=== PATIENT | male | born 1950 | race Caucasian/White ===

== ENCOUNTER 2021-01-30 00:14 | Emergency (ER) | payer OTHER ==
[~2021-01-30] VITALS: Ht 172.7 cm; Wt 81.7 kg
[~2021-01-30 00:14] MED LIST: ALPR.5 PO; ASPI325 PO; ATOR40TA PO; CENTRUM SILVER1 EAC4 PO; CHOL10002 PO; CLOP75 PO; GLUC500 PO; HEARTBURN TREAT15 MG PO; METO25ER PO; NITR.4SL SL; Naprosyn500 MG PO; Protonix40 MG PO; SERT50 PO; [UNRECOGNIZED DRUG - REMARK]
[2021-01-30 00:36] LABS: BASOPHILS ABSOLUTE AUTO 0.04 K/mm3 (0.00-0.23); BASOPHILS PERCENT AUTO 1 % (0-2); EOSINOPHILS PERCENT AUTO 2 % (0-6); Hematocrit 40.1 % (37.0-53.0); Hemoglobin 13.9 g/dL (13.5-17.5); IMMATURE GRAN ABSOLUTE AUTO 0.03 K/mm3 (0.00-0.10); IMMATURE GRAN PERCENT AUTO 0 % (0-1); LYMPHOCYTES ABSOLUTE AUTO 1.91 K/mm3 (0.84-5.20); LYMPHOCYTES PERCENT AUTO 22 % (21-46); MONOCYTES ABSOLUTE AUTO 0.66 K/mm3 (0.16-1.47); MONOCYTES PERCENT AUTO 7 % (4-13); Mean Corpuscular HGB 31.9 pg (26.0-34.0); Mean Corpuscular HGB Conc 34.7 g/dL (31.5-36.5); Mean Corpuscular Volume 92 fL (80-100); Mean Platelet Volume 10.2 fL (9.1-12.4); NEUTROPHILS ABSOLUTE AUTO 6.04 K/mm3 (1.96-9.15); NEUTROPHILS PERCENT AUTO 68 % (41-73); Platelet Count 244 K/mm3 (150-400); RDW Coefficient Variation 12.2 % (11.7-14.2); RDW Standard Deviation 41.3 fL (35.1-46.3); Red Blood Cell Count 4.36 M/mm3 (4.30-5.90); White Blood Cell Count 8.88 K/mm3 (4.00-11.30)
[2021-01-30 01:00] LABS: Alanine Aminotransfer (ALT/SGP 32 U/L (12-78); Albumin, Blood 3.9 g/dL (3.4-5.0); Albumin/Globulin Ratio 1.2 (0.8-1.8); Alk Phos 78 U/L (50-136); Anion Gap 6 mmol/L (6-16); Aspartate Aminotrans (AST/SGOT 21 U/L (12-37); Bilirubin, Total 0.3 mg/dL (0.1-1.0); Blood Urea Nitrogen 19 mg/dL (8-24); Bun/Creatinine Ratio 22.4 (12.0-20.0); CO2, Blood 27 mmol/L (21-32); Calcium, Blood 9.1 mg/dL (8.5-10.1); Chloride, Blood 107 mmol/L (98-108); Creatinine, Blood 0.85 mg/dL (0.60-1.20); Globulin, Blood 3.3 g/dL (2.2-4.0); Glomerular Filtration Rate >60 (60-); Glucose, Blood 116 mg/dL (70-99); Potassium, Blood 3.6 mmol/L (3.5-5.5); Sodium, Blood 140 mmol/L (136-145); Total Protein, Blood 7.2 g/dL (6.4-8.2)
[2021-01-30 01:01] LABS: Source, Urine Voided
[2021-01-30 01:03] LABS: Bilirubin, Urine Neg (Neg); Blood, Urine Neg (Neg); Glucose Qualitative, Urine Neg (Neg); Ketones, Urine Neg (Neg); Leukocyte Esterase, Urine 1+ (Neg); Nitrite, Urine Neg (Neg); Protein, Urine Neg (Neg); Specific Gravity, Urine 1.015 (1.003-1.022); Urobilinogen, Urine NORM (Normal)
[2021-01-30 01:15] LABS: Appearance, Urine Clear (Clear); Bacteria Not Seen /hpf; Color, Urine Yellow (P-Yellow); Red Blood Cells, Urine Not Seen /hpf (0-2); Squamous Epithelial Cells Not Seen /hpf (Few)
[2021-01-30] MEDS ORDERED: CYCL10 PO (02:00)
[2021-01-30] MEDS ORDERED: LIDO700A20 TOP (02:00)
[2021-01-30] MEDS ORDERED: Naprosyn500 MG PO (02:00)
== END 2021-01-30 02:24 | disposition home or self-care (01) ==
LOC: ER 00:14
PROVIDERS: Emergency Medicine
DX: M54.5 Low back pain (principal); Z79.899 Other long term (current) drug therapy; Z79.02 Long term (current) use of antithrombotics/antiplatelets; Z79.82 Long term (current) use of aspirin
CPT/HCPCS: 72131; 74176; 80053; 81001; 83605; 85025; 87086; 96374; 99284-25; A9270; J1885

== ENCOUNTER → 2023-02-18 | Outpatient (CLI) | payer OTHER ==
[~2023-02-18] MED LIST changes: +CYCL10 PO; +LIDO700A20 TOP
== END | disposition home or self-care (01) ==
LOC: LAB SHORT 14:54 → LAB 14:54
DX: H60.393 Other infective otitis externa, bilateral (principal)
CPT/HCPCS: 87070; 87077; 87186; 87205

== ENCOUNTER 2023-10-07 10:31 | Day surgery (SDC) | payer OTHER ==
[~2023-10-07] VITALS: Ht 172.7 cm; Wt 76.7 kg
--- NOTE | 2023-10-07 11:16 | NUR ---
10/07/23 1116 Luz Maria Navas CALL LIGHT WITHIN REACH
[2023-10-07 13:13] VITALS: BP 159/75
--- NOTE | 2023-10-07 13:17 | NUR ---
10/07/23 1317 Ibis Mccollum IV DC'D WNL, CATH INTACT. SITE WRAPPED IN COBAN. PT TOLERATED IV DC WELL.
== END 2023-10-07 13:05 | disposition home or self-care (01) ==
LOC: ORSCSDS 10:31
PROVIDERS: Orthopaedic Surgery
PROC: 01N54ZZ Release Median Nerve, Percutaneous Endoscopic Approach (ICD-10-PCS; principal; 2023-10-07 12:00)
DX: G56.03 Carpal tunnel syndrome, bilateral upper limbs (principal); I10 Essential (primary) hypertension; I25.10 Atherosclerotic heart disease of native coronary artery without angina pectoris; K21.9 Gastro-esophageal reflux disease without esophagitis; E78.00 Pure hypercholesterolemia, unspecified; E78.5 Hyperlipidemia, unspecified; I25.2 Old myocardial infarction; Z87.891 Personal history of nicotine dependence; Z79.82 Long term (current) use of aspirin; Z79.899 Other long term (current) drug therapy
CPT/HCPCS: J2250; J7120

== ENCOUNTER 2024-03-05 13:18 | Day surgery (SDC) | payer OTHER ==
[~2024-03-05] VITALS: Ht 172.7 cm; Wt 71.7 kg
[~2024-03-05 13:18] MED LIST changes: +Lactated Ringer's 1,000 ML IV ONE; +Lidocaine 1%-Epineph 1:100000 20 ML MDV ONE
[2024-03-05] MEDS ORDERED: ZOLOFT50 MG PO (13:46)
[2024-03-05] MEDS ORDERED: TAMSULOSIN HCL0.4 M1 PO (13:47)
[2024-03-05] MEDS ORDERED: LOSARTAN-HCTZ1 EACH PO (13:49)
[2024-03-05] MEDS ORDERED: Lactated Ringer's 1,000 ML IV ONE (14:00)
--- NOTE | 2024-03-05 14:02 | NUR ---
03/05/24 1402 GUNNAR SWANSON PT ATE A SANDWICH AT 0730 TODAY. PT CHOSE TO HAVE PROCEDURE UNDER LOCAL ONLY W/O ANESTHESIA.
[2024-03-05 15:37] VITALS: BP 142/81
== END 2024-03-05 15:17 | disposition home or self-care (01) ==
LOC: ORSCSDS 13:18
PROVIDERS: Orthopaedic Surgery
PROC: 01N54ZZ Release Median Nerve, Percutaneous Endoscopic Approach (ICD-10-PCS; principal; 2024-03-05 14:00)
DX: G56.02 Carpal tunnel syndrome, left upper limb (principal); I25.2 Old myocardial infarction; I10 Essential (primary) hypertension; K21.9 Gastro-esophageal reflux disease without esophagitis; E78.5 Hyperlipidemia, unspecified; E78.00 Pure hypercholesterolemia, unspecified; Z79.899 Other long term (current) drug therapy
CPT/HCPCS: J7120

== ENCOUNTER 2024-05-26 06:15 | Day surgery (SDC) | payer OTHER ==
[~2024-05-26] VITALS: Ht 172.7 cm; Wt 72.6 kg
[~2024-05-26 06:15] MED LIST changes: +LOSARTAN-HCTZ1 EACH PO; -Lactated Ringer's 1,000 ML IV ONE; -Lidocaine 1%-Epineph 1:100000 20 ML MDV ONE; +TAMSULOSIN HCL0.4 M1 PO; +ZOLOFT50 MG PO
[2024-05-26] MEDS ORDERED: Lactated Ringer's 1,000 ML IV ONE ×3 (06:17→09:40)
[2024-05-26] MEDS ORDERED: CeFAZolin Sodium 1000 mg Vial ONE (06:36)
[2024-05-26] MEDS ORDERED: OxyCODONE HCL 10 MG TABCR ONE (06:37)
[2024-05-26] MEDS ORDERED: Acetaminophen 500 MG Tab ONE (06:38)
[2024-05-26] MEDS ORDERED: propofoL 20 ML IV ONE (06:49)
[2024-05-26] MEDS ORDERED: Midazolam HCl 1MG / ML 2ML Vial ONE (06:49)
[2024-05-26] MEDS ORDERED: FentaNYL Citrate 50 MCG/ML 2 ML Injection ONE (06:49)
[2024-05-26] MEDS ORDERED: Ropivacaine 0.5% HCL/PF 5 MG/ML 30ML Vial ONE (06:51)
[2024-05-26] MEDS ORDERED: Lidocaine 2%-Epineph 1:200000 20 ML SDV ONE (06:53)
[2024-05-26] MEDS ORDERED: CeFAZolin Sodium 2,000 MG VIAL ONE (06:59)
[2024-05-26] MEDS ORDERED: Ropivacaine 0.5% HCl/Pf 123.125 MG,EPINEPHrine HCL 0.25 MG,Ketorolac Tromethamine 15 MG... INFIL SCH (07:00)
[2024-05-26] MEDS ORDERED: NS 50 ML IV ONE (07:18)
[2024-05-26] MEDS ORDERED: Tranexamic Acid 100 ML IV ONE ×2 (07:45→10:50)
[2024-05-26] MEDS ORDERED: Rocuronium Bromide 10 MG/ML 5ML Injection IV ONE (07:48)
[2024-05-26] MEDS ORDERED: Phenylephrine HCl 100 MCG/ML-NS 10MLSYR (1MG/10ML) ONE (07:48)
[2024-05-26] MEDS ORDERED: Chlorhexidine Mouth Care 15 ML UDC MT SCH (08:00)
[2024-05-26] MEDS ORDERED: ePHEDrine Sulfate 50 MG/ML 1ML Injection ONE (08:07)
--- NOTE | 2024-05-26 08:07 | NUR ---
05/26/24 0807 Pippa Agustin 0743: NERVE BLOCK COMPLETED BY DR NAGEL, TIMEOUT COMPLETED PRIOR TO PROCEDURE
--- NOTE | 2024-05-26 09:38 | NUR ---
05/26/24 0938 Rosalie Faustin INTERSCALENE NERVE BLOCK COMPLETE IN PRE OP BY DR NAGEL.
[2024-05-26] MEDS ORDERED: Sugammadex Sodium 200 MG/2ML SDV (100 MG/ML) ONE ×2 (10:05→10:18)
[2024-05-26] MEDS ORDERED: Phenylephrine HCl 10mg/ml 1 ml Vial ONE (10:14)
[2024-05-26] MEDS ORDERED: Ondansetron HCl 2 MG / ML 2ML Vial ONE (10:42)
[2024-05-26] MEDS ORDERED: Metoclopramide HCl 5MG / ML 2ML Vial ONE (10:57)
[2024-05-26 11:39] VITALS: BP 136/63
[2024-05-26] MEDS ORDERED: Scopolamine Hydrobromide Patch ONE (13:25)
--- NOTE | 2024-05-26 13:34 | NUR ---
05/26/24 1334 Pat Shila PATIENT HAS BEEN SITTING IN RECLINER WITH AT BEDSIDE. USED INCENTIVE SPIROMETER APPROPRIATELY. NAUSEA HAD RESOLVED UNTIL PT ATTEMPTED TO EAT SALTINE CRACKERS AND ALMOST IMMEDIATELY PATIENT BEGAN DRY HEAVING. PT ALREADY RECEIVED REGLAN AND ZOFRAN FROM RN JXP. PT REPORTS NAUSEA IMPROVED AFTER DRY HEAVING. SPOKE TO DR NAGEL AND ORDER RCVD FOR SCOPOLAMINE PATCH. PATCH PLACED BEHIND L EAR. AND PT DIRECTED ON PROPER REMOVAL IN 72 HOURS AND DIRECTED TO WASH HANDS IMMEDIATELY AFTER TOUCHING AND AVOID TOUCHING EYES.
== END 2024-05-26 13:57 | disposition home or self-care (01) ==
LOC: ORSCSDS 06:15
PROVIDERS: Orthopaedic Surgery
PROC: 0RRJ00Z Replacement of Right Shoulder Joint with Reverse Ball and Socket Synthetic Substitute, Open Approach (ICD-10-PCS; principal; 2024-05-26 07:30)
DX: M12.811 Other specific arthropathies, not elsewhere classified, right shoulder (principal); I10 Essential (primary) hypertension; I25.10 Atherosclerotic heart disease of native coronary artery without angina pectoris; K21.9 Gastro-esophageal reflux disease without esophagitis; F32.A Depression, unspecified; F41.9 Anxiety disorder, unspecified; I25.2 Old myocardial infarction; Z79.899 Other long term (current) drug therapy; Z79.82 Long term (current) use of aspirin
CPT/HCPCS: 73030; A9270; C1713; C1776; J0171; J0690; J0735; J1885; J2250; J2371; J2405; J2704; J2765; J2795; J3010; J7120

== ENCOUNTER 2025-09-05 09:14 | Day surgery (SDC) | payer OTHER ==
[~2025-09-05] VITALS: Ht 172.7 cm; Wt 72.6 kg
[2025-09-05] MEDS ORDERED: TRAMADOL (09:50)
[2025-09-05] MEDS ORDERED: FISH OIL 1,0001 EA10 (09:51)
[2025-09-05] MEDS ORDERED: NAPR500ERA (09:51)
[2025-09-05 11:13] VITALS: BP 127/66
== END 2025-09-05 13:09 | disposition home or self-care (01) ==
LOC: ORSCSDS 09:14
PROVIDERS: Internal Medicine Gastroenterology
PROC: 0DB58ZX Excision of Esophagus, Via Natural or Artificial Opening Endoscopic, Diagnostic (ICD-10-PCS; principal; 2025-09-05 10:45)
DX: K22.70 Barrett's esophagus without dysplasia (principal); K44.9 Diaphragmatic hernia without obstruction or gangrene; I10 Essential (primary) hypertension; E78.5 Hyperlipidemia, unspecified; I25.10 Atherosclerotic heart disease of native coronary artery without angina pectoris; Z85.46 Personal history of malignant neoplasm of prostate; Z87.891 Personal history of nicotine dependence; Z79.82 Long term (current) use of aspirin; Z79.899 Other long term (current) drug therapy
CPT/HCPCS: 88305; J2704; J7120